=== PATIENT | male | born 1955 | race Caucasian/White ===

== ENCOUNTER 2020-05-21 10:43 | Day surgery (SDC) | payer OTHER ==
[2020-05-19 10:08] LABS: COVID AG,FIA SOURCE NASOPHARYNGEAL
[~2020-05-21 10:43] MED LIST: AMLO2.5T96 PO; ATOR10TA84 PO; CHOL200016 PO; DOCU-275 PO; LOSA50TA37 PO; METF-960 PO; SODIUM CHLORIDE 0.9% 1,000 ML ONE
[2020-05-21] MEDS ORDERED: PROPOFOL 1% 20 ML VIAL IVP ONE (10:44)
[2020-05-21] MEDS ORDERED: SODIUM CHLORIDE 0.9% 1,000 ML IV ONE (11:00)
[2020-05-21 11:35] LABS: GLUCOMETER DEV NAME(LOC) SDS.; GLUCOSE,POINT OF CARE 101 MG/DL (70-110)
[2020-05-21] MEDS ORDERED: OXYGEN THERAPY IH SCH (20:00)
== END 2020-05-21 14:30 | disposition home or self-care (01) ==
LOC: SURGERY 10:43
PROVIDERS: ATTEND Specialist
DX: K62.5 Hemorrhage of anus and rectum (principal); K64.9 Unspecified hemorrhoids; Z20.822 Contact with and (suspected) exposure to COVID-19; E78.00 Pure hypercholesterolemia, unspecified; I10 Essential (primary) hypertension; E03.9 Hypothyroidism, unspecified; E11.9 Type 2 diabetes mellitus without complications; Z79.899 Other long term (current) drug therapy; Z80.8 Family history of malignant neoplasm of other organs or systems
CPT/HCPCS: 45378; 82962; 87426; C9803; J2704; J7030